=== PATIENT | female | born 1975 | race African-American/Black ===

== ENCOUNTER 2016-08-05 10:58 | Inpatient (IN) | payer OTHER ==
[~2016-08-05] VITALS: Ht 165.1 cm; Wt 164.6 kg
[~2016-08-05 10:58] MED LIST: ASPIR-LOW81 MG PO; FOLIC ACID1 MG PO; IRON325 M1 PO; LASIX20 MG PO; LASIX40 MG PO; LISINOPRIL20 MG PO; POTASSIUM CHLO20 ME1 PO; PRINIVIL10 MG PO; PROAIR HFA8.5 GM IH; SPIRONOLACTONE25 MG PO; Vitamin B-12 SL
[2016-08-05 11:53] VITALS: BP 139/90; BP 139/93
[2016-08-05 12:13] LABS: HEMATOCRIT 39.1 % (36.0-46.0); MCH 25.2 PG (29.0-34.0); MCHC 28.6 G/DL (30.0-36.0); MEAN PLAT.VOLUME 10.7 uM^3 (9.5-12.4); PLATELET COUNT 169 K/uL (156-360); RBC DIS.WIDTH-CV 14.8 % (11.8-14.6); RBC DIS.WIDTH-SD 46.7 % (39-53); RED BLOOD COUNT 4.45 M/uL (3.80-5.20)
[2016-08-05 12:14] LABS: EOSINOPHIL (%) 1.7 % (0-5); EOSINOPHIL COUNT 0.1 K/uL (0-0.3); IMMATURE GRANULOCYTE (%) 0.3 % (0.0-0.7); IMMATURE GRANULOCYTE COUNT 0.2 K/uL; LYMPHOCYTE COUNT 1.1 K/uL (1.0-2.8); MCV 87.9 FL (83-99); MONOCYTE (%) 5.6 % (3-12); MONOCYTE COUNT 0.3 K/uL (0-0.8); NEUTROPHIL (%) 74.1 % (45-76); NEUTROPHIL COUNT 4.5 K/uL (1.8-6.4)
[2016-08-05 12:22] LABS: INTER. NORMALIZED RATIO 1.1; PROTHROMBIN TIME 11.1 (9.2-11.2); PTT 26.7 (25-32)
[2016-08-05 12:23] LABS: CHLORIDE 101 mEq/L (99-109); SODIUM 141 mEq/L (136-147)
[2016-08-05 12:24] LABS: MAGNESIUM 2.2 mg/dL (1.3-2.7)
[2016-08-05 12:25] LABS: GLUCOSE 87 mg/dL (70-99)
[2016-08-05 12:26] LABS: ANION GAP 9 MEQ/L (2-14)
[2016-08-05 12:29] LABS: GFR ESTIMATE (CALCULATED) > 59 mL/min/
[2016-08-05 12:30] LABS: UREA NITROGEN (BUN) 17 mg/dL (9-23)
[2016-08-05 12:42] LABS: TROP-I INTERPRETATION NEGATIVE; TROPONIN-I 0.02 ng/mL (0.0-0.30)
[2016-08-05] MEDS ORDERED: ZESTRIL40 MG PO (15:26)
[2016-08-05] MEDS ORDERED: CYANOCOBALAM1000 MCG PO (15:28)
[2016-08-05] MEDS ORDERED: VITAMIN D31000 UNI2 PO (15:29)
[2016-08-05] MEDS ORDERED: BIOTIN1000 MICRO PO (15:31)
[2016-08-05 17:48] LABS: BASE EXCESS 10.9 mEq/L (-3 to +3); BICARBONATE 38.5 mEq/L (22-26); CARBOXY HGB 2.6 % (0-5); METHEMOGLOBIN 1.4 % (0-1.5); PCO2 65 mm Hg (35-45); PO2 81 mm Hg (80-100); pH 7.38 (7.35-7.45)
[2016-08-05 17:49] LABS: COMMENTS - BLOOD GASES A+C+; DEVICE NC; O2 FLOW 4 L/MIN; SITE LRA; TOTAL RESP RATE 18 resp/min
[2016-08-05 20:00] VITALS: BP 118/70
[2016-08-05 23:55] VITALS: BP 125/79
[2016-08-06 04:00] VITALS: BP 114/70
[2016-08-06 07:08] LABS: HEMATOCRIT 40.7 % (36.0-46.0); MCH 25.2 PG (29.0-34.0); MCHC 28.3 G/DL (30.0-36.0); MCV 89.3 FL (83-99); MEAN PLAT.VOLUME 12.2 uM^3 (9.5-12.4); PLATELET COUNT 176 K/uL (156-360); RBC DIS.WIDTH-CV 15.2 % (11.8-14.6); RBC DIS.WIDTH-SD 48.7 % (39-53); RED BLOOD COUNT 4.56 M/uL (3.80-5.20); WHITE BLOOD COUNT 5.2 K/uL (4.1-10.2)
[2016-08-06 07:40] LABS: ANION GAP 8 MEQ/L (2-14); CHLORIDE 98 MEQ/L (99-109); GFR ESTIMATE (CALCULATED) > 59 mL/min/; GLUCOSE 78 mg/dL (70-99); POTASSIUM 3.9 MEQ/L (3.7-5.4); SAMPLE HEMOLYSIS CHECK 0; SAMPLE ICTERIC CHECK 0; SAMPLE LIPEMIA CHECK 0; SODIUM 143 MEQ/L (136-147); UREA NITROGEN (BUN) 16 mg/dL (9-23)
[2016-08-06 09:00] VITALS: BP 134/82
[2016-08-06 12:00] VITALS: BP 145/70
[2016-08-06 16:00] VITALS: BP 146/75
[2016-08-06 20:00] VITALS: BP 124/56
[2016-08-06 23:55] VITALS: BP 128/88
[2016-08-07 04:00] VITALS: BP 110/63
[2016-08-07 06:50] LABS: HEMATOCRIT 40.1 % (36.0-46.0); MCH 25.1 PG (29.0-34.0); MCHC 28.4 G/DL (30.0-36.0); MCV 88.3 FL (83-99); PLATELET COUNT 165 K/uL (156-360); RBC DIS.WIDTH-SD 48.3 % (39-53); RED BLOOD COUNT 4.54 M/uL (3.80-5.20); WHITE BLOOD COUNT 5.2 K/uL (4.1-10.2)
[2016-08-07 06:59] LABS: EOSINOPHIL (%) 2.1 % (0-5); EOSINOPHIL COUNT 0.1 K/uL (0-0.3); IMMATURE GRANULOCYTE (%) 0.2 % (0.0-0.7); LYMPHOCYTE COUNT 0.8 K/uL (1.0-2.8); MONOCYTE (%) 9.8 % (3-12); MONOCYTE COUNT 0.5 K/uL (0-0.8); NEUTROPHIL (%) 72.2 % (45-76); NEUTROPHIL COUNT 3.8 K/uL (1.8-6.4)
[2016-08-07 07:29] LABS: ANION GAP 7 MEQ/L (2-14); CHLORIDE 98 MEQ/L (99-109); GFR ESTIMATE (CALCULATED) > 59 mL/min/; GLUCOSE 80 mg/dL (70-99); POTASSIUM 4.2 MEQ/L (3.7-5.4); SAMPLE HEMOLYSIS CHECK 0; SAMPLE ICTERIC CHECK 0; SAMPLE LIPEMIA CHECK 0; SODIUM 145 MEQ/L (136-147); UREA NITROGEN (BUN) 15 mg/dL (9-23)
[2016-08-07 08:50] VITALS: BP 117/66
[2016-08-07 12:05] VITALS: BP 129/77
[2016-08-07 16:43] VITALS: BP 132/85
[2016-08-07 19:57] VITALS: BP 115/64
[2016-08-07 23:47] VITALS: BP 108/57
[2016-08-08 03:30] VITALS: BP 102/54
[2016-08-08 06:04] LABS: HEMATOCRIT 39.6 % (36.0-46.0); MCH 25.4 PG (29.0-34.0); MCHC 28.5 G/DL (30.0-36.0); MEAN PLAT.VOLUME 11.9 uM^3 (9.5-12.4); PLATELET COUNT 165 K/uL (156-360); RBC DIS.WIDTH-CV 14.8 % (11.8-14.6); RBC DIS.WIDTH-SD 48.2 % (39-53); RED BLOOD COUNT 4.45 M/uL (3.80-5.20); WHITE BLOOD COUNT 5.1 K/uL (4.1-10.2)
[2016-08-08 06:47] LABS: ANION GAP 8 MEQ/L (2-14); CHLORIDE 96 MEQ/L (99-109); EOSINOPHIL (%) 2.8 % (0-5); EOSINOPHIL COUNT 0.1 K/uL (0-0.3); GFR ESTIMATE (CALCULATED) > 59 mL/min/; GLUCOSE 83 mg/dL (70-99); IMMATURE GRANULOCYTE (%) 0.2 % (0.0-0.7); MONOCYTE (%) 7.1 % (3-12); MONOCYTE COUNT 0.4 K/uL (0-0.8); NEUTROPHIL (%) 69.8 % (45-76); NEUTROPHIL COUNT 3.6 K/uL (1.8-6.4); POTASSIUM 4.2 MEQ/L (3.7-5.4); SAMPLE HEMOLYSIS CHECK 0; SAMPLE ICTERIC CHECK 0; SAMPLE LIPEMIA CHECK 0; SODIUM 143 MEQ/L (136-147); UREA NITROGEN (BUN) 15 mg/dL (9-23)
[2016-08-08 08:00] VITALS: BP 132/83
[2016-08-08] MEDS ORDERED: ASPIR-LOW81 MG PO (13:39)
[2016-08-08] MEDS ORDERED: LISINOPRIL20 MG PO (13:42)
[2016-08-08] MEDS ORDERED: ZOLPIDEM TARTRAT5 MG PO (13:42)
[2016-08-08] MEDS ORDERED: FUROSEMIDE40 MG PO (13:42)
[2016-08-08 13:58] VITALS: BP 128/83
== END 2016-08-08 15:10 | disposition home or self-care (01) | DRG 292 ==
LOC: EME 10:58 → 4EAST 14:01 → EDOF 14:01 → 4EAST 15:14
PROVIDERS: Emergency Medicine; Family Medicine; Internal Medicine Cardiovascular Disease
DX: I50.9 Heart failure, unspecified (principal); E66.2 Morbid (severe) obesity with alveolar hypoventilation; J96.11 Chronic respiratory failure with hypoxia; Z68.44 Body mass index [BMI] 60.0-69.9, adult; E87.70 Fluid overload, unspecified; I27.81 Cor pulmonale (chronic); I10 Essential (primary) hypertension; F32.9 Major depressive disorder, single episode, unspecified; F41.9 Anxiety disorder, unspecified; Z98.84 Bariatric surgery status; Z91.19 Patient's noncompliance with other medical treatment and regimen; Z99.81 Dependence on supplemental oxygen
CPT/HCPCS: 36600; 71010; 71020; 71275; 80048; 82803; 83735; 83880; 84484; 85025; 85027; 85610; 85730; 93005; 93970; 94660; 94799; 99202; 99281; 99285; J1650; J1940

== ENCOUNTER 2016-12-15 23:15 | Emergency (ER) | payer OTHER ==
[~2016-12-15] VITALS: Ht 165.1 cm; Wt 169.3 kg
[~2016-12-15 23:15] MED LIST changes: +BIOTIN1000 MICRO PO; +CYANOCOBALAM1000 MCG PO; +FUROSEMIDE40 MG PO; +VITAMIN D31000 UNI2 PO; +ZESTRIL40 MG PO; +ZOLPIDEM TARTRAT5 MG PO
[2016-12-15 23:58] LABS: HEMATOCRIT 39.3 % (36.0-46.0); MCH 25.2 PG (29.0-34.0); MCHC 28.5 G/DL (30.0-36.0); MCV 88.5 FL (83-99); MEAN PLAT.VOLUME 11.1 uM^3 (9.5-12.4); NRBC (%) 0.5 /100 WBC (0-0); PLATELET COUNT 212 K/uL (156-360); RBC DIS.WIDTH-CV 15.8 % (11.8-14.6); RBC DIS.WIDTH-SD 51.7 % (39-53); RED BLOOD COUNT 4.44 M/uL (3.80-5.20); WHITE BLOOD COUNT 6.1 K/uL (4.1-10.2)
[2016-12-16 00:09] LABS: CHLORIDE 103 mEq/L (99-109); POTASSIUM 4.7 mEq/L (3.7-5.4); SODIUM 141 mEq/L (136-147)
[2016-12-16 00:11] LABS: GLUCOSE 94 mg/dL (70-99)
[2016-12-16 00:12] LABS: ANION GAP 7 MEQ/L (2-14)
[2016-12-16 00:13] LABS: TOTAL BILIRUBIN 0.5 mg/dL (0.0-1.0)
[2016-12-16 00:15] LABS: ALKALINE PHOSPHATASE 86 IU/L (3-129); GFR ESTIMATE (CALCULATED) > 59 mL/min/
[2016-12-16 00:16] LABS: UREA NITROGEN (BUN) 15 mg/dL (9-23)
[2016-12-16 00:23] LABS: QUANTITATIVE HCG < 4.0 MIU/ML
[2016-12-16 02:10] LABS: ADD MIUA? YES
[2016-12-16 02:11] LABS: BILIRUBIN NEGATIVE; BLOOD SMALL; COLOR YELLOW ((YELLOW)); GLUCOSE (STRIP) NEGATIVE; KETONES NEGATIVE; LEUKOCYTES NEGATIVE; NITRITE NEGATIVE; PROTEIN (STRIP) 100; UROBILINOGEN 0.2 MG/DL (0.2-1.0)
[2016-12-16] MEDS ORDERED: ZOFRAN8 MG PO (02:53)
[2016-12-16] MEDS ORDERED: NORCO 5/3251 TABLET PO (02:53)
[2016-12-16 02:55] LABS: BACTERIA NONE SEEN /HPF; EPITHELIAL CELLS RARE /HPF; MUCUS 1+ /LPF; RED BLOOD CELLS 0-5 /HPF (0-5); UCUL ADDED? NO; WHITE BLOOD CELLS NONE SEEN /HPF (0-5)
[2016-12-16 02:56] LABS: CASTS NONE SEEN /LPF; CRYSTALS NONE SEEN
[2016-12-16 03:29] VITALS: BP 164/94
== END 2016-12-16 03:30 | disposition home or self-care (01) ==
LOC: EME 23:15
DX: R10.9 Unspecified abdominal pain (principal); D25.9 Leiomyoma of uterus, unspecified; I11.9 Hypertensive heart disease without heart failure; Z98.84 Bariatric surgery status
CPT/HCPCS: 74176; 80053; 81003; 84702; 85027; 99281; 99283